=== PATIENT | female | born 1950 | race Caucasian/White ===

== ENCOUNTER 2024-12-18 09:00 | Outpatient (CLI) | payer MEDICARE, MEDICAID, SELFPAY ==
--- NOTE | 2024-12-18 09:08 | PDOC.PAIN_ITS ---
Date of service: 12/18/24 Time of Service: 09:53 Pain Managment Procedure Note Procedure Note Procedure Note: Lumbar Medial Branch Block ? Location: Bilateral Medial Branches ? Levels: L3,4,5? (L4-5, L5-S1 FACET) ? Pre-procedure Diagnosis: M47.817 Spondylosis without myelopathy or radiculopathy, lumbosacral region M47.816 Spondylosis without myelopathy or radiculopathy, lumbar region ? Post-procedure Diagnosis:? The same as above ? Sedation: NONE? Estimated blood loss:? less than 2 cc ? Surgeon:? Femi Alfaro MD COMMENT: PRE PROCEDURE PAIN SCORE: /10 Patient had previous [place]frequency [place] several [place] the [place], [place] [facility] [place] Patient now has bilateral back pain. Will proceed bilateral medial branch blocks at L3, 4, 5.. ? Procedure Detail:? The procedure and potential risks were explained to the patient and informed written consent was obtained. The patient was escorted to the procedure room and placed in the prone position. Pillows were utilized for proper positioning and comfort.? Time out was performed in procedure room with nursing staff confirming the patient's identity, procedure to be performed, allergies, and any blood thinning or anti-platelet medications. The patient's lower back was prepped with chlorhexidine and draped in a sterile fashion. Sterile technique was maintained throughout the procedure.? Sterile gloves were used, a face mask was worn, and new single dose vials of all medications were used with the top being swabbed with alcohol and given time to dry prior to withdrawal of medication.? A left AND right-sided oblique fluoroscopic view was obtained, with visualization of the: ?RIGHT and LEFT L3,4 and DORSAL RAMUS L5 AT SACRAL ALA ? junction of the transverse process and superior articular process. Lidocaine 1% was used to anesthetize the skin. A 22-gauge Quincke needle was advanced along the superior margin of the transverse process and lateral to the articular process.? It was directed inferiorly and medially so that the tip struck the junction of the base of the transverse process and the superior articular process. The needle was then walked over the superior aspect of the transverse process and advanced slightly along the course of the L3,4,5 medial branch nerves. Proper placement was verified in A/P, oblique and lateral views under fluoroscopy. At this location, following negative aspiration, 0.5cc 0.5% bupivacaine was injected.? The patient tolerated the procedure well and was transported to the recovery area for observation and discharge instructions. Permanent images saved and recorded. Follow-up:? The patient will return in 2 weeks for confirmatory LMBBs if they? meet the criteria from today's procedure lasting for at least 2 hours.? COMMENT:Pain went from 9/10 to 0/10. Before the patient left patient had 100% pain relief. USE 5 next time.Patient had Modic changes from her 2020 MRI at L5-S1. Consider updating MRI if not improving.
[2024-12-18 09:14] VITALS: BP 105/68; PULSE 75; RESP 18; TEMP 36.7; O2SAT 97
[2024-12-18 09:34] VITALS: PULSE 81; O2SAT 93
[2024-12-18 09:40] VITALS: PULSE 77; O2SAT 94
--- NOTE | 2024-12-18 09:56 | DI.RAD_ITS ---
Exam(s) XR PAIN CLINIC LUMBAR SP 2V EXAM: XR PAIN CLINIC LUMBAR SP 2V CLINICAL HISTORY: Dx: Lumbar Spondylosis TECHNIQUE: 2D and realtime digital imaging was performed. CONTRAST MATERIAL: Refer to procedure report. COMPARISON: No exams were available for comparison FINDINGS: Fluoroscopy was provided for Dr. Alfaor during the performance of a bilateral lumbar medial branch blocks. Please refer to the procedure report for complete details. Ka,r=0.6 mGy IMPRESSION: RADIATION DOSE DELIVERED: 0.0 0.0 0
[2024-12-18] MEDS: Nerve Block Tray 1 EACH MC (09:57)
[2024-12-18] MEDS: Bupivacaine 0.5% Pres-Free 10 ML VIAL IJ (09:57)
== END 2024-12-18 09:01 | disposition home or self-care (01) ==
LOC: PC 09:01
PROVIDERS: PCP Family Medicine; Visit Provider Anesthesiology Pain Medicine
DX: M54.50 Low back pain, unspecified (principal); M47.817 Spondylosis without myelopathy or radiculopathy, lumbosacral region; M47.816 Spondylosis without myelopathy or radiculopathy, lumbar region
CPT/HCPCS: 00123; 64493; 64494; 72100; J0665

== ENCOUNTER 2025-01-07 12:48 | Outpatient (CLI) | payer MEDICARE, MEDICAID, SELFPAY ==
--- NOTE | 2025-01-07 06:00 | DI.RAD_ITS ---
Exam(s) XR PAIN CLINIC LUMBAR SP 2V EXAM: XR PAIN CLINIC LUMBAR SP 2V CLINICAL HISTORY: DX: Lumbar Spondylosis. TECHNIQUE: 2D and realtime digital imaging was performed. CONTRAST MATERIAL: Oral barium Oral water soluble contrast was administered. COMPARISON: No exams were available for comparison FINDINGS: Fluoroscopy was provided during pain management lumbar spine injections performed by the pain managem ent specialist. See procedure report for details. IMPRESSION: Total fluoroscopy time 19.9 seconds RADIATION DOSE DELIVERED: Lionelr=6.14mGy
[2025-01-07 13:25] VITALS: BP 131/72; PULSE 83; RESP 18; TEMP 37; O2SAT 98
--- NOTE | 2025-01-07 13:53 | PDOC.PAIN ---
Date of service: 01/07/25 Time of Service: 14:25 Pain Managment Procedure Note Procedure Note Procedure Note: Location: Bilateral Medial Branches ? Levels: L3,4,5? (L4-5, L5-S1 FACET) ? Pre-procedure Diagnosis: M47.817 Spondylosis without myelopathy or radiculopathy, lumbosacral region M47.816 Spondylosis without myelopathy or radiculopathy, lumbar region ? Post-procedure Diagnosis:? The same as above ? Sedation: NONE? Estimated blood loss:? less than 2 cc ? Surgeon:? Femi Alfaro MD COMMENT: Patient had? GREATER THAN % relief after the first medial branch block for greater than the duration of the local anesthetic.? PRE PROCEDURE PAIN SCORE: 8/10 ? Procedure Detail:? The procedure and potential risks were explained to the patient and informed written consent was obtained. The patient was escorted to the procedure room and placed in the prone position. Pillows were utilized for proper positioning and comfort.? Time out was performed in procedure room with nursing staff confirming the patient's identity, procedure to be performed, allergies, and any blood thinning or anti-platelet medications. The patient's lower back was prepped with chlorhexidine and draped in a sterile fashion. Sterile technique was maintained throughout the procedure.? Sterile gloves were used, a face mask was worn, and new single dose vials of all medications were used with the top being swabbed with alcohol and given time to dry prior to withdrawal of medication.? A left and right-sided oblique fluoroscopic view was obtained, with visualization of the: ?RIGHT and LEFT L3,4 and DORSAL RAMUS L5 AT SACRAL ALA ? junction of the transverse process and superior articular process. Lidocaine 1% was used to anesthetize the skin. A 5 22-gauge Quincke needle was advanced along the superior margin of the transverse process and lateral to the articular process.? It was directed inferiorly and medially so that the tip struck the junction of the base of the transverse process and the superior articular process. The needle was then walked over the superior aspect of the transverse process and advanced slightly along the course of the Medial Branch medial branch nerves. Proper placement was verified in A/P, oblique and lateral views under fluoroscopy. At this location, following negative aspiration, 0.5cc 2% lidocaine was injected.? The patient tolerated the procedure well and was transported to the recovery area for observation and discharge instructions. Permanent images saved and recorded. Follow-up:?? Will plan to proceed with lumbar medial branch RFA if the patient gets good relief from today's procedure lasting for at least 2 hours. COMMENT:Pain went from 8/10 to 0/10. Before the patient left patient had 100% pain relief. Use 15cm probe for RF. Coding Conscious Sedation used for procedure: No CPT Codes: LMBB (includes Fluoro) Lumbar/Sacral, single lvl *BILATERAL* - [id number] ([id number]~G5) 50 - BILATERAL PROCEDURE LMBB (includes Fluoro) Lumbar/Sacral, 2nd lvl - 41199 ([id number] ~G) LT - LEFT SIDE, RT - RIGHT SIDE bilat Additional Codes: Date of Service (52390) Date of service: 01/07/25
[2025-01-07 13:59] VITALS: PULSE 98
[2025-01-07 14:00] VITALS: PULSE 90
[2025-01-07 14:10] VITALS: PULSE 96; O2SAT 100
[2025-01-07] MEDS: Nerve Block Tray 1 EACH MC (14:19)
[2025-01-07] MEDS: Lidocaine 2% Multi-Dose 20 ML VIAL IJ (14:19)
== END 2025-01-07 12:49 | disposition home or self-care (01) ==
LOC: PC 12:48
PROVIDERS: PCP Family Medicine; Visit Provider Anesthesiology Pain Medicine
DX: M47.816 Spondylosis without myelopathy or radiculopathy, lumbar region (principal); M54.50 Low back pain, unspecified
CPT/HCPCS: 64493; 64494; 72100; J2003

== ENCOUNTER 2025-02-03 11:46 | Outpatient (CLI) | payer MEDICARE, MEDICAID, SELFPAY ==
[2025-02-03] VITALS (13 sets, daily range): BP systolic 134–164; BP diastolic 61–82; PULSE 69–81; RESP 10–21; TEMP 36.7; O2SAT 98–100
--- NOTE | 2025-02-03 06:00 | DI.RAD_ITS ---
Exam(s) XR PAIN CLINIC LUMBAR SP 2V EXAM: XR PAIN CLINIC LUMBAR SP 2V CLINICAL HISTORY: DX: Lumbar spondylosis. TECHNIQUE: Fluoroscopy was provided for the referring physician for guidance with performing pain cl inic injection procedure. COMPARISON: No exams were available for comparison FINDINGS: Please see procedure note for details. Fluoro time: 62.9 seconds RADIATION DOSE DELIVERED: Kar=24.1 mGy
--- NOTE | 2025-02-03 12:10 | PDOC.PAIN ---
Date of service: 02/03/25 Time of Service: 13:20 Pain Managment Procedure Note Procedure Note Procedure Note: Lumbar Medial Branch COOLED Radiofrequency Ablation COMMENT: Patient had greater than 80 % relief after 2 medial branch blocks . ? Location: Bilateral L3, and L4 medial Branches and dorsal ramus of L5 (L4-5, and L5-S1 joints) ? Pre-procedure Diagnosis: M47.817 Spondylosis without myelopathy or radiculopathy, lumbosacral region ? Post-procedure Diagnosis:? The same as above ? Sedation:?Intravenous line started 1mg of intravenous midazolam and fentanyl 25 mcg?were administered. An independent trained observer monitored the patient for the duration of the procedure.? Estimated blood loss:? less than 2 cc ? Surgeon: Femi Alfaro MD ? Procedure Detail:? The procedure and potential risks were explained to the patient and informed written consent was obtained. The patient was escorted to the procedure room and placed in the prone position. Pillows were utilized for proper positioning and comfort. Time out was performed in the procedure room with nursing staff confirming the patient's identity, procedure to be performed, allergies, and any blood thinning or anti-platelet medications. The patient's lower back was prepped with ChloraPrep and draped in a sterile fashion.? Sterile technique was maintained throughout the procedure.? Sterile gloves were used, a face mask was worn, and new single dose vials of all medications were used with the top being swabbed with alcohol and given time to dry prior to withdrawal of medication. A left AND right-sided oblique fluoroscopic view was obtained, with visualization of the L4 junction of the transverse process and superior articular process. 2% lidocaine was used to anesthetize the skin. With fluoroscopic guidance, an 17 gauge 150mm long 4mm active tip RF cannula was advanced to the superior margin of the transverse process and lateral to the superior articular process.? It was directed inferiorly and medially so that the tip struck the junction of the base of the transverse process and the superior articular process. The needle was then slightly advanced along the course of the L3 medial branch nerve. Proper placement was verified with oblique, AP, and lateral fluoroscopic views. Sensory tested with good response less than 1V. Motor testing was performed and was negative at 2V except for expected multifidus activation. A similar procedure was also performed at the ipsilateral L4 medial branch nerves and the dorsal ramus of L5 with negative motor testing at 2V except for expected multifidus activation. One cc of 2% lidocaine was injected through each needle tip to anesthetize the medial branch nerves.? After waiting for the local anesthetic to take effect, each nerve was then ablated at 60 degrees Celsius for 150 seconds. This was repeated on the opposite side at the same levels. The patient was monitored for any severe pain or radicular pain during the ablation and reported none. The patient tolerated the procedure well, and was discharged in stable condition.? Permanent images were saved and recorded. PAIN: PRE PROCEDURE POST PROCEDURE Plan: F/U PRN COMMENT: Repeat prn if 6 months relief of 50% Coding Conscious Sedation used for procedure: Yes CPT Codes: Single Facet Joint, Lumbar/Sacral cool - 17777I ([id number]~G) BILATERAL Single Facet Joint, Lumbar/Sacral cool each add'l - 84981P (63871V10~G) LT - LEFT SIDE, RT - RIGHT SIDE Moderate sedation; First 15 min - 57854 (70805) Moderate sedation; add. 15 increments - 64885 (86507) Additional Codes: Date of Service (08836) Date of service: 02/03/25
--- NOTE | 2025-02-03 12:14 | PDOC.PAIN2 ---
History of Present Illness History of Present Illness History of Present Illness: Sedation template: Ms. Parra is here today for lumbar radiofrequency ablation with moderate sedation.? Pre-procedure assessment was made and no contraindications to proceed were identified.? Patient's cardiovascular status and respiratory status were monitored and stable throughout the course of the procedure.? Patient was able to respond? purposefully to verbal commands.? There were no interventions required to maintain a patent airway and spontaneous ventilation was adequate.? At the termination of the procedure patient's vital signs were stable.? The patient was alert and oriented x 3.? 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 Medications used: ? Midazolam 1milligrams ? Fentanyl??25 micrograms Review of Systems Medications/Allergies Allergies Allergy/AdvReac Type Severity Reaction Status Date / Time acetaminophen (From Percocet) AdvReac Intermediate vomiting Unverified 02/03/25 12:11 ampicillin AdvReac Intermediate yeast Unverified 02/03/25 12:11 infection oxycodone (From Percocet) AdvReac Intermediate vomiting Unverified 02/03/25 12:11 Tetracyclines AdvReac Intermediate yeast Unverified 02/03/25 12:11 infection Medications: Current Medications Bupivacaine HCl (Bupivacaine 0.25% Pres-Free 30 Ml Vial) 0 ml IJ DIRECTED [place] Stop: 02/03/25 23:59 Bupivacaine HCl (Bupivacaine 0.5% Pres-Free 10 Ml Vial) 0 ml IJ DIRECTED [place] Stop: 02/03/25 23:59 Bupivacaine HCl (Bupivacaine 0.5% Pres-Free 30 Ml Vial) 0 ml IJ DIRECTED [place] Stop: 02/03/25 23:59 Dexamethasone Sodium Phosphate (Dexamethasone Sod. Phos./Pres-Free 10 Mg/Ml Vial) 0 mg IJ DIRECTED [place] Stop: 02/03/25 23:59 Fentanyl (Fentanyl 100 Mcg/2 Ml Vial) 0 mcg IVP DIRECTED [place] Stop: 02/03/25 23:59 Iohexol (Omnipaque 240 Mg/Ml 50 Ml Btl) 0 ml IJ DIRECTED [place] Stop: 02/03/25 23:59 Lidocaine HCl (Lidocaine 1% Pres-Free 5 Ml Vial) 0 ml IJ DIRECTED [place] Stop: 02/03/25 23:59 Lidocaine HCl (Lidocaine 1% Pres-Free 30 Ml Vial) 0 ml IJ DIRECTED [place] Stop: 02/03/25 23:59 Lidocaine HCl (Lidocaine 2% Pres-Free 2 Ml Vial) 0 ml IJ DIRECTED [place] Stop: 02/03/25 23:59 Lidocaine HCl (Lidocaine 2% Pres-Free 5 Ml Vial) 0 ml IJ DIRECTED [place] Stop: 02/03/25 23:59 Lidocaine HCl (Lidocaine 2% Multi-Dose 20 Ml Vial) 0 ml IJ DIRECTED [place] Stop: 02/03/25 23:59 Methylprednisolone Acetate (Methylprednisolone Acetate 80 Mg/Ml Vial) 0 mg IJ DIRECTED [place] Stop: 02/03/25 23:59 Methylprednisolone Acetate (Methylprednisolone Acetate 40 Mg/Ml Vial) 0 mg IJ DIRECTED [place] Stop: 02/03/25 23:59 Midazolam HCl (Midazolam 2 Mg/2 Ml Vial) 0 mg IVP DIRECTED [place] Stop: 02/03/25 23:59 Miscellaneous (Nerve Block Tray) 1 each MC DIRECTED [place] Stop: 02/03/25 23:59 Sodium Chloride (Normal Saline 20 Ml Vial) 0 ml IJ DIRECTED [place] Stop: 02/03/25 23:59 Ambulatory Orders ?Medication ?Instructions ?Recorded [place] Low Dose Aspirin 81 mg 81 mg PO DAILY 01/26/17 tablet,delayed release (aspirin) Flonase Allergy Relief 50 9.9 ml NS .AFTERNOON 01/26/17 mcg/actuation nasal spray,suspension (fluticasone propionate) propylene glycol 0.6 % eye drops 1 drp ophthalmic (eye) BID 07/06/17 (Systane Balance) albuterol sulfate 90 mcg/actuation 2 puff inhalation Q4H PRN 06/10/24 aerosol inhaler amlodipine 5 mg tablet 5 mg PO DAILY 06/10/24 calcium carbonate (Antacid 200 mg PO DAILY 06/10/24 (calcium carbonate)) cyclobenzaprine 10 mg tablet 10 mg PO TID PRN 06/10/24 denosumab 60 mg/mL subcutaneous 60 mg subcut [id number] 06/10/24 syringe (Prolia) gabapentin 100 mg capsule 300 mg PO DAILY 06/10/24 lidocaine 4 % topical patch 1 patch topical DAILY PRN 06/10/24 oxybutynin chloride 5 mg tablet 15 mg PO DAILY 06/10/24 pantoprazole 20 mg tablet,delayed 20 mg PO DAILY 06/10/24 release psyllium husk 3.4 gram/5.4 gram 1 tbsp PO DAILY PRN 06/10/24 oral powder (Metamucil) quetiapine 50 mg tablet 50 mg PO DAILY 06/10/24 venlafaxine 150 mg 150 mg PO DAILY 06/10/24 capsule,extended release 24 hr (Effexor XR) cholecalciferol (vitamin D3) 25 25 mcg PO DAILY 12/02/24 mcg (1,000 unit) capsule metoprolol succinate 50 mg 50 mg PO DAILY 12/02/24 tablet,extended release 24 hr
[2025-02-03] MEDS: Midazolam 2 MG/2 ML VIAL IVP (12:45)
[2025-02-03] MEDS: fentaNYL 100 MCG/2 ML VIAL IVP (12:45)
[2025-02-03] MEDS: Lidocaine 2% Multi-Dose 20 ML VIAL IJ (13:20)
[2025-02-03] MEDS: Nerve Block Tray 1 EACH MC (13:21)
[2025-02-03] MEDS: Lactated Ringers 500 ML 80 ML IV (13:22)
== END 2025-02-03 11:47 | disposition home or self-care (01) ==
LOC: PC 11:47
PROVIDERS: PCP Family Medicine; Visit Provider Anesthesiology Pain Medicine
DX: M54.50 Low back pain, unspecified (principal); M47.817 Spondylosis without myelopathy or radiculopathy, lumbosacral region
CPT/HCPCS: 64635; 64636; 72100; J2003; J2250; J3010

== ENCOUNTER 2025-07-01 08:39 | Outpatient (CLI) | payer MEDICARE, MEDICAID, SELFPAY ==
--- NOTE | 2025-07-01 06:00 | DI.RAD_ITS ---
Exam(s) XR PAIN CLINIC SACRIOILIAC 2V EXAM: XR PAIN CLINIC SACRIOILIAC 2V CLINICAL HISTORY: Bilateral Sacroiliac Joint Injection TECHNIQUE: 2D and realtime digital imaging was performed. CONTRAST MATERIAL: Refer to procedure report. COMPARISON: No exams were available for comparison FINDINGS: Fluoroscopy was provided for Dr. Lebron during the performance of a bilateral sacroiliac joint injection. Please refer to the procedure report for complete details. Ka,r=13.0 mGy IMPRESSION: RADIATION DOSE DELIVERED: 0.0 0.0 0
[2025-07-01 09:36] VITALS: BP 149/58; PULSE 64; RESP 18; TEMP 36.7; O2SAT 97
[2025-07-01 09:56] VITALS: BP 162/104; PULSE 73; PULSE 78; RESP 15
[2025-07-01 09:57] VITALS: PULSE 74; PULSE 76; RESP 18
[2025-07-01 10:00] VITALS: PULSE 69; PULSE 70; RESP 18; O2SAT 97
[2025-07-01 10:01] VITALS: BP 154/77; PULSE 69; PULSE 72; RESP 20; O2SAT 100
[2025-07-01] MEDS: Nerve Block Tray 1 EACH MC (10:13)
[2025-07-01] MEDS: Omnipaque 240 MG/ML 50 ML BTL IJ (10:14)
[2025-07-01] MEDS: methylPREDNISolone ACETATE 80 MG/ML VIAL IJ (10:14)
--- NOTE | 2025-07-06 12:20 | PDOC.PAIN_ITS ---
Date of service: 07/01/25 Time of Service: 10:01 Pain Managment Procedure Note Procedure Note Procedure Note: PROCEDURE NOTE BILATERAL INTRA-ARTICULAR SACROILIAC JOINT INJECTION Date of Service: July 01, 2025 Patient: TEJAL WHELAN Provider: Dom Lebron DO, MPH COMMENTS: I previously evaluated the patient in the office and their symptoms in relation to the sacroiliac joint pain have remained the same. Pre-operative diagnosis: Sacroiliac joint dysfunction ICD-10 M53.3 Post-operative diagnosis: Same Pre-procedure pain: VAS= 6/10 TEJAL WHELAN has been referred to our [facility] for a Bilateral intra-articular Sacroiliac joint injection. TEJAL was interviewed and the medical record reviewed. There were no medical, pharmacologic, radiographic or other structural contraindications to attempting a fluoroscopically-guided, contrast-enhanced, intra-articular Sacroiliac joint injection. The risks, benefits, and potential side effects of this procedure were reviewed with the patient. Questions and concerns were addressed. After it was clear that TEJAL was fully informed about the procedure, the printed consent form was signed by the patient and myself. TEJAL was placed in the prone position on the fluoroscopy table and an automated blood pressure cuff, 3 lead EKG, and pulse oximeter were applied. The skin entry point for approaching the Left sacroiliac joint was identified under the most advantageous fluoroscopic view and marked. Following thorough Chlorhexadine preparation of the skin and draping with sterile surgical drapes, 2 mls of 1% lidocaine was infiltrated into the skin at the entry point and the surrounding subcutaneous tissues. Next, a 3.5 22G spinal needle was placed under fluoroscopic guidance into the Left sacroiliac joint. Intra-articular placement was confirmed by a clear arthrogram resulting from the injection of 0.25ml of Omnipaque-240. Next, 1 ml of Depo- Medrol 40 mg/ml was injected intra- articularly with an initial reproduction of a significant component of the usual pain. This was followed with 1 ml of 1% Lidocaine. The needle was then removed without difficulty. (49 ml of Omnipaque-240 was wasted). The exact procedure was completed on the opposite sacroiliac joint. KEVs vital signs were stable throughout the procedure and were as recorded in nursing records. Follow up plans and appointments were discussed with TEJAL. Post procedure instructions were given as documented in nursing records. Having met discharge criteria, TEJAL was [facility] from the [facility]. COMMENTS: Post-procedure pain: VAS= 0/10. If the patient receives at least 50% improvement in pain and/or function for at least 3 months, this procedure can be repeated if needed. I personally performed this entire procedure. DOM LEBRON DO, MPH ABPMR-subspecialty board certification in Pain Medicine [facility] Coding Conscious Sedation used for procedure: No CPT Codes: SI Joint Inj; incl Fluoro * BILATERAL* - [id number] ([id number]~G5) Additional Codes: Date of Service (21371) Date of service: 07/01/25 Diagnoses: Sacroiliac joint dysfunction
== END 2025-07-01 08:40 | disposition home or self-care (01) ==
LOC: PC 08:41
PROVIDERS: Visit Provider Preventive Medicine Occupational Medicine
DX: M54.50 Low back pain, unspecified (principal); M53.3 Sacrococcygeal disorders, not elsewhere classified
CPT/HCPCS: 27096; 72200; J1010; Q9967